=== PATIENT | female | born 1940 | race Caucasian/White ===

== ENCOUNTER 2021-03-28 08:36 | Emergency (ER) | payer MEDICARE ==
[~2021-03-28] VITALS: Ht 157.5 cm; Wt 81.3 kg
[~2021-03-28 08:36] MED LIST: ATOR20TA66 PO; COLC0.6T72 PO; GABA-534 PO; HYDR-4383 PO; LISI5TAB PO; TRAM50TA2 PO; ZOLP10TA5 PO
[2021-03-28 08:39] VITALS: BP 159/78
== END 2021-03-28 09:56 | disposition home or self-care (01) ==
LOC: ER 08:36
DX: S60.222A Contusion of left hand, initial encounter (principal); M25.532 Pain in left wrist; I10 Essential (primary) hypertension; Z90.49 Acquired absence of other specified parts of digestive tract; Z90.710 Acquired absence of both cervix and uterus; Z98.84 Bariatric surgery status; Z88.2 Allergy status to sulfonamides; Z88.8 Allergy status to other drugs, medicaments and biological substances; Z79.899 Other long term (current) drug therapy; W01.0XXA Fall on same level from slipping, tripping and stumbling without subsequent striking against object, initial encounter; Y93.01 Activity, walking, marching and hiking; Y92.89 Other specified places as the place of occurrence of the external cause; Y99.8 Other external cause status
CPT/HCPCS: 73130; 99283

== ENCOUNTER 2023-02-11 12:24 | Emergency (ER) | payer MEDICARE ==
[~2023-02-11] VITALS: Ht 157.5 cm; Wt 77.0 kg
[~2023-02-11 12:24] MED LIST changes: -GABA-534 PO; +GABA-535 PO
[2023-02-11 13:02] VITALS: BP 181/96; PULSE 88; RESP 18; TEMP 98.8; O2SAT 99
[2023-02-11] MEDS ORDERED: ketorolac tromethamine 15mg/ml inj. IM ONE (13:25)
[2023-02-11] MEDS ORDERED: mupirocin 2% ointment 22GM TP STA (13:34)
[2023-02-11] MEDS ORDERED: MUPI22OI30 TOP (14:18)
== END 2023-02-11 14:28 | disposition home or self-care (01) ==
LOC: ER 12:25
DX: T22.112A Burn of first degree of left forearm, initial encounter (principal); T23.102A Burn of first degree of left hand, unspecified site, initial encounter; I10 Essential (primary) hypertension; Z90.49 Acquired absence of other specified parts of digestive tract; Z98.84 Bariatric surgery status; Z90.710 Acquired absence of both cervix and uterus; Z88.1 Allergy status to other antibiotic agents; Z79.899 Other long term (current) drug therapy; X11.8XXA Contact with other hot tap-water, initial encounter; Y93.89 Activity, other specified; Y92.89 Other specified places as the place of occurrence of the external cause; Y99.8 Other external cause status
CPT/HCPCS: 16000; 96372; 99283; J1885; A6258; A6449

== ENCOUNTER 2024-08-17 08:10 | Day surgery (SDC) | payer MEDICARE ==
[~2024-08-17] VITALS: Ht 157.5 cm; Wt 69.5 kg
[~2024-08-17 08:10] MED LIST changes: +CHOL50002 PO; +FLUO-10 PO; +OMEG100037 PO; +vit c
[2024-08-17 08:48] VITALS: BP 147/63; PULSE 76; RESP 15; TEMP 75
[2024-08-17] MEDS ORDERED: propofol inj 20 ML IV ONE (09:37)
[2024-08-17] MEDS ORDERED: fentaNYL/PF 50MCG/1 ML 2ML syringe ONE (09:37)
[2024-08-17] MEDS ORDERED: midazolam 1 mg/ML 2ml injection ONE (09:37)
[2024-08-17 10:06] VITALS: BP 86/40; PULSE 70; RESP 12; O2SAT 98
[2024-08-17 10:15] VITALS: BP 93/39; PULSE 69; RESP 10; O2SAT 98
[2024-08-17 10:25] VITALS: BP 101/42; PULSE 68; RESP 12; O2SAT 97
[2024-08-17 10:35] VITALS: BP 118/55; PULSE 72; RESP 11; O2SAT 98
[2024-08-17 10:45] VITALS: BP 122/64; PULSE 76; RESP 12; O2SAT 98
== END 2024-08-17 10:55 | disposition home or self-care (01) ==
LOC: PRE-OP 08:10
PROVIDERS: ATTEND Internal Medicine Gastroenterology
DX: R13.19 Other dysphagia (principal); B37.81 Candidal esophagitis; I10 Essential (primary) hypertension; M19.90 Unspecified osteoarthritis, unspecified site; Z98.84 Bariatric surgery status; Z98.890 Other specified postprocedural states; Z88.8 Allergy status to other drugs, medicaments and biological substances; Z98.0 Intestinal bypass and anastomosis status
CPT/HCPCS: 43239; A4620; C1889; J2250; J2704; J3010; Z7512; 88108; 88305; 88312

== ENCOUNTER 2025-03-15 11:42 | Outpatient (CLI) | payer OTHER, MEDICARE ==
--- NOTE | 2025-03-18 09:21 | CONSULTATION ---
DATE OF CONSULTATION: 03/15/2025 DICTATING PHYSICIAN: Alexandria Scales M.S., [facility]-BOBCAT DRIVER/LABOR MODIFIED BARIUM SWALLOW STUDY REPORT REFERRING PHYSICIAN: Aggie Huntley MD. HISTORY OF PRESENT ILLNESS: The patient is an 84-year-old female and consents to this evaluation. History was obtained from the patient and medical records. The patient reports symptoms of dysphagia including having to have had the Heimlich maneuver performed on her twice in 2 weeks. She reports that both instances were at a [employer] restaurant while eating chips and salsa. The patient also notes that she has been having to be cautious about having too much food in her mouth at a time and having to aim her pills in a certain direction in order for them to go down okay. The patient reports having a history of hiatal hernia. She also used to wake up with symptoms of acid reflux, but has not had these symptoms in several years. The patient had an endoscopy last week, but has not yet heard the results. She had a phone call from the clinic, but has not yet returned that call. The patient also reports medical history of osteoporosis. CURRENT DIET: In terms of caffeine, the patient has 3 cups of coffee a day and 1 diet Pepsi a day. She does not utilize tobacco products or drink alcohol. She consumes chocolate 3 times weekly. She consumes dairy products 4-5 times a week. A typical breakfast consists of toast with tomato slices and egg whites. She does not have any snacks or lunch during the day, but her next meal is dinner, which is at 4:00 p.m. and is some kind of protein with vegetables, and then she has ice cream in the evenings. She goes to bed at 10:00 p.m. MEDICATIONS: Fluoxetine HCL 20 mg 1 capsule once daily orally, gabapentin 400 mg 1 capsule three times daily orally, tramadol HCL 50 mg 1 b.i.d. p.r.n. orally, gabapentin 600 mg 1 tablet three times daily orally, atorvastatin calcium 20 mg 1 tablet one time daily orally, lisinopril 20 mg 1 tablet one time daily orally, vitamin D 1000 units 2 tablets once daily orally, Prolia 60 mg/mL subcutaneous solution prefilled syringe 60 mg twice a year, zolpidem tartrate 10 mg once daily orally, fish oil 500 mg 1 capsule once daily orally, calcium carbonate 1250 1 tablet two times daily orally, vitamin C once daily orally. PARAMETERS: The patient is seated in a lateral 90-degree view and administered the usual protocol of thin and nectar-thick liquids, puree and solid consistencies, as well as self-regulated boluses of thin liquids from the cup. RESULTS: In the oral stage of the swallow, the patient was easily able to transfer the bolus from the anterior to the posterior oral cavity. There did not appear to be any difficulty with strength or range of motion of the tongue. There was no oral residue noted in the cavity after the tail of the bolus was passed. In the pharyngeal stage of the swallow, tongue base retraction was within functional limits. Anterior movement at the posterior pharyngeal wall was observed. Swallow initiation was slightly delayed for thin liquids to the level of the vallecula. Elevation of the hyothyroid complex was accomplished with mildly reduced epiglottic inversion. There was no pharyngeal residue noted after the tail of the bolus was passed and PES opening was within functional limits. In terms of airway safety, the patient demonstrated penetration for 3 mL, 5 mL and self-regulated bolus of thin liquid from a cup with independent clearance. It was noted in the lateral view that for the puree and solid consistency that it would begin to stick below that level of the UES opening and have prolonged propulsion through the esophagus. ANTERIOR-POSTERIOR VIEW: In the AP plane, the bolus split symmetrically between the piriform sinuses and there was proximal movement of the boluses noted to the level of the mid sternum. 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 The patient also demonstrated penetration of the thin liquid boluses that would independently clear. DIAGNOSES: R13.14, dysphagia, pharyngoesophageal phase, R05.9, cough. PATIENT EDUCATION: Immediately following modified barium swallow study, the patient was able to view the results. The normal anatomy of the swallowing mechanism was revealed. She was able to see the proximal movement of the various boluses. She was instructed in laryngopharyngeal reflux disease precautions with the written handout provided to her. She was also instructed to return that phone call regarding her endoscopy to go over the results. RECOMMENDATIONS: It is recommended that the patient follow the aforementioned laryngopharyngeal reflux disease precautions in the form of dietary modifications. It is also recommended that she follow up with her physician regarding her endoscopy results. LONG-TERM GOALS: The patient will maintain adequate hydration/nutrition with optimum safety and efficiency of swallow function on p.o. intake without overt signs and symptoms of aspiration for the highest possible diet level. FUNCTIONAL ORAL INTAKE: The FOIS was administered to establish and document a change in the functional eating activities of this patient over time. This is a 7-point scale with 1 indicating no oral intake and totally tube dependent and 7 indicating total oral intake with no restrictions. This patient received a 6, which indicates she has a total oral diet with multiple consistencies without special preparation, but with specific food limitations and precautions. G-CODE: [id number]. Thank you very much for asking me to participate in the care of this kind patient. Should you have any questions regarding this evaluation or recommendations, please do not hesitate to contact me at [phone]. During this examination, 3 minutes and 13 seconds of fluoroscopy time and 17.08 CAK mGy were utilized. Alexandria Scales M.S., [facility]-BOBCAT DRIVER/LABOR TID: [id number] RECEIPT: [id number] BEN/MARSISA SANDOVAL
== END 2025-03-15 23:59 | disposition home or self-care (01) ==
LOC: RAD 11:42
PROVIDERS: ATTEND Family Medicine
DX: R13.14 Dysphagia, pharyngoesophageal phase (principal); R05.9 Cough, unspecified
CPT/HCPCS: 74230